=== PATIENT | male | born 1965 | race Caucasian/White ===

== ENCOUNTER → 2019-05-01 | Outpatient (CLI) | payer BC ==
--- NOTE | 2019-05-01 13:39 | KCIC ---
MR of the left shoulder HISTORY: Left shoulder pain, progressing for 6 months. No known injury. TECHNIQUE: Routine multiplanar sequences are obtained. FINDINGS: Acromioclavicular joint is intact. Rotator cuff tendinosis with heterogeneous signal compatible with tendinosis. No measurable fluid gap or rupture. Subscapularis tendinosis without high-grade tear. No significant subdeltoid bursal effusion. Glenohumeral joint demonstrates severe DJD with severe chondral loss. Subchondral cysts at the humeral head and glenoid. Degenerative tear of the superior, posterior and probably inferior labrum. The biceps tendon demonstrates tendinosis. No acute fracture. No aggressive bone destruction. No evidence of acute soft tissue abnormality. IMPRESSION: 1. Severe glenohumeral joint DJD. 2. Superior, posterior and probably inferior labral tear. 3. Rotator cuff tendinosis without high-grade tear or rupture. 4. Biceps tendinosis. Electronically signed by: Garrick Price MD (05/01/2019 1:36 PM) [id number]
== END | disposition home or self-care (01) ==
LOC: KCIC MRI 10:49
PROVIDERS: ATTEND Family Medicine
DX: S43.432A Superior glenoid labrum lesion of left shoulder, initial encounter (principal); S46.012A Strain of muscle(s) and tendon(s) of the rotator cuff of left shoulder, initial encounter; M19.012 Primary osteoarthritis, left shoulder; M75.22 Bicipital tendinitis, left shoulder; M25.812 Other specified joint disorders, left shoulder; X58.XXXA Exposure to other specified factors, initial encounter; Y93.89 Activity, other specified; Y92.89 Other specified places as the place of occurrence of the external cause; Y99.8 Other external cause status
CPT/HCPCS: 73221